=== PATIENT | male | born 1955 | race Caucasian/White ===

== ENCOUNTER 2022-02-14 14:11 | Emergency (ER) | payer OTHER ==
--- NOTE | 2022-02-14 15:52 | RAD REPORT ---
EXAM DESCRIPTION: RAD - Foot Right 3 View - 02/14/2022 3:40 pm CLINICAL HISTORY: PAIN, no known precipitating injury COMPARISON: No comparisons FINDINGS: Transverse fracture is present through the proximal shaft of the fifth metatarsal. No dist raction or angulation deformity. No other fracture or acute bone finding identified. Patient has buddy re degenerative change at the first MTP joint. The joint space is effaced with sclerotic change to th e articular margins. First metatarsal head bony hypertrophy is present. No air or foreign body in the soft tissues. IMPRESSION: Right fifth metatarsal fracture without distraction or angulation. 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
--- NOTE | 2022-02-14 15:56 | EDPHYS ---
[facility] Name: Cecilio Martinez Age: 66 yrs Sex: Male : 1955 Arrival Date: 02/14/2022 Time: 14:14 Bed IW8 Private MD: Bartolo Dumont T ED Physician Jessee Melgoza HPI: 02/14 15:16 This 66 yrs old Male presents to ER via Unassigned with complaints of Foot Injury. snw 15:16 The patient presents with pain, that is acute. The complaints affect the dorsum of snw right foot. Context: The problem was sustained at home, resulted from an unknown cause, the patient can partially bear weight, the patient is able to ambulate. Onset: The symptoms/episode began/occurred acutely. Associated signs and symptoms: The patient has no apparent associated signs or symptoms. Severity of symptoms: At their worst the symptoms were moderate. The patient has not experienced similar symptoms in the past. The patient has not recently seen a physician. pt noted tenderness to lateral right foot and then today during golf swing pt felt pop and fell to knees, tenderness to lateral foot. Historical: - Allergies: 15:53 No Known Allergies; ss - Immunization history:: Client reports receiving the 2nd dose of the Covid vaccine. - Social history:: Smoking status: Patient denies any tobacco usage or history of. ROS: 15:15 Constitutional: Negative for fever, chills, and weight loss, Eyes: Negative for injury, snw pain, redness, and discharge, ENT: Negative for injury, pain, and discharge, Neck: Negative for injury, pain, and swelling, Cardiovascular: Negative for chest pain, palpitations, and edema, Respiratory: Negative for shortness of breath, cough, wheezing, and pleuritic chest pain, Abdomen/GI: Negative for abdominal pain, nausea, vomiting, diarrhea, and constipation, Back: Negative for injury and pain, : Negative for injury, bleeding, discharge, and swelling, Skin: Negative for injury, rash, and discoloration, Neuro: Negative for headache, weakness, numbness, tingling, and seizure, Psych: Negative for depression, anxiety, suicide ideation, homicidal ideation, and hallucinations. 15:15 MS/extremity: Positive for injury or acute deformity, pain, swelling, of the right lateral foot. Exam: 15:13 Constitutional: This is a well developed, well nourished patient who is awake, alert, snw and in no acute distress. Head/Face: Normocephalic, atraumatic. Eyes: Pupils equal round and reactive to light, extra-ocular motions intact. Lids and lashes normal. Conjunctiva and sclera are non-icteric and not injected. Cornea within normal limits. Periorbital areas with no swelling, redness, or edema. ENT: Nares patent. No nasal discharge, no septal abnormalities noted. Tympanic membranes are normal and external auditory canals are clear. Oropharynx with no redness, swelling, or masses, exudates, or evidence of obstruction, uvula midline. Mucous membranes moist. Neck: Trachea midline, no thyromegaly or masses palpated, and no cervical lymphadenopathy. Supple, full range of motion without nuchal rigidity, or vertebral point tenderness. No Meningismus. Chest/axilla: Normal chest wall appearance and motion. Nontender with no deformity. No lesions are appreciated. Cardiovascular: Regular rate and rhythm with a normal S1 and S2. No gallops, murmurs, or rubs. Normal PMI, no JVD. No pulse deficits. Respiratory: Lungs have equal breath sounds bilaterally, clear to auscultation and percussion. No rales, rhonchi or wheezes noted. No increased work of breathing, no retractions or nasal flaring. Abdomen/GI: Soft, non-tender, with normal bowel sounds. No distension or tympany. No guarding or rebound. No evidence of tenderness throughout. Back: No spinal tenderness. No costovertebral tenderness. Full range of motion. Skin: Warm, dry with normal turgor. Normal color with no rashes, no lesions, and no evidence of cellulitis. Neuro: Awake and alert, GCS 15, oriented to person, place, time, and situation. Cranial nerves II-XII grossly intact. Motor strength 5/5 in all extremities. Sensory grossly intact. Cerebellar exam normal. Normal gait. Psych: Awake, alert, with orientation to person, place and time. Behavior, mood, and affect are within normal limits. 15:13 Musculoskeletal/extremity: Extremities: grossly normal except: noted in the dorsum of right foot: decreased ROM, tenderness, right lateral dorsal foot, ROM: no acute changes, Circulation is intact in all extremities. the dorsum of right foot Severe pain noted. Vital Signs: 15:51 BP 140 / 94; Pulse 84; Resp 16; Temp 98.8(TE); Pulse Ox 100% on R/A; Weight 74.84 kg; ss Height 5 ft. 8 in. (172.72 cm); Pain 5/10; 15:51 Body Mass Index 25.09 (74.84 kg, 172.72 cm) ss Procedures: 15:14 Splinting: Splint applied to right foot using walking boot, placed. applied by myself. snw Examined by me, post splint application: neurovascular intact, 2+ distal pulses palpable, brisk capillary refill noted, Patient tolerated well. MDM: 14:55 Patient medically screened. snw 15:57 Data reviewed: vital signs, nurses notes. Data interpreted: Pulse oximetry: is 100 %. snw Counseling: I had a detailed discussion with the patient and/or guardian regarding: the historical points, exam findings, and any diagnostic results supporting the discharge/admit diagnosis, radiology results, the need for outpatient follow up, for definitive care, to return to the emergency department if symptoms worsen or persist or if there are any questions or concerns that arise at home. Response to treatment: the patient's symptoms have markedly improved after treatment. 02/14 14:59 Order name: Foot Right 3 View XRAY; Complete Time: 15:54 snw 02/14 14:59 Order name: Walking boot; Complete Time: 15:54 snw Administered Medications: 15:56 Drug: traMADol 50 mg Route: PO; ss 16:15 Follow up: Response: Medication administered at discharge. Disposition: 18:04 Co-signature as Attending Physician, Jessee Melgoza MD I agree with the assessment and rt plan of care. Disposition Summary: 02/14/22 15:55 Discharge Ordered Location: Home snw Condition: Stable snw Diagnosis - Fracture of fifth metatarsal bone snw - Sprain of foot snw Followup: snw - With: Emergency Department - When: As needed - Reason: Worsening of condition Followup: snw - With: Bartolo Dumont MD - When: 1 week - Reason: Recheck today's complaints, Continuance of care, Re-evaluation by your physician Discharge Instructions: - Discharge Summary Sheet snw - Foot Sprain snw - Metatarsal Fracture snw - RICE Therapy for Routine Care of Injuries snw - Walking Boot, Adult snw - Foot Pain snw Forms: - Medication Reconciliation Form snw - Thank You Letter snw - Antibiotic Education snw - Prescription Opioid Use snw Prescriptions: - Mobic 7.5 mg Oral Tablet - take 1 tablet by ORAL route once daily take with food; 20 tablet; Refills: 0, snw Product Selection Permitted Signatures: Dispatcher [employer] EDMS Lanie Moctezuma, GEOLOGICAL SCOUT-C GEOLOGICAL SCOUT-Csnw Madeline Cannon RN RN ss Jessee Melgoza MD MD rt
--- NOTE | 2022-02-14 15:56 | ER ---
Nurse's Notes [facility] Name: Cecilio Martinez Age: 66 yrs Sex: Male : 1955 Arrival Date: 02/14/2022 Time: 14:14 Bed IW8 Private MD: Bartolo Dumont T Diagnosis: Fracture of fifth metatarsal bone;Sprain of foot Presentation: 02/14 15:51 Chief complaint: Patient states: R foot pain after stepping off curb while playing golf ss a week ago. Coronavirus screen: Client denies travel out of the [place] in the last 14 days. Ebola Screen: Patient denies exposure to infectious person. Patient denies travel to an Ebola-affected area in the 21 days before illness onset. Initial Sepsis Screen: Does the patient meet any 2 criteria? No. Patient's initial sepsis screen is negative. Does the patient have a suspected source of infection? No. Patient's initial sepsis screen is negative. Risk Assessment: Do you want to hurt yourself or someone else? Patient reports no desire to harm self or others. Onset of symptoms was February 07, 2022. 15:51 Method Of Arrival: Ambulatory ss 15:51 Acuity: ADRIA 4 ss Historical: - Allergies: 15:53 No Known Allergies; ss - Immunization history:: Client reports receiving the 2nd dose of the Covid vaccine. - Social history:: Smoking status: Patient denies any tobacco usage or history of. Vital Signs: 15:51 BP 140 / 94; Pulse 84; Resp 16; Temp 98.8(TE); Pulse Ox 100% on R/A; Weight 74.84 kg; ss Height 5 ft. 8 in. (172.72 cm); Pain 5/10; 15:51 Body Mass Index 25.09 (74.84 kg, 172.72 cm) ss ED Course: 14:14 Patient arrived in ED. as 14:14 Bartolo Dumont MD is Private Physician. as 14:29 Lanie Moctezuma FNP-C is [facility]. snw 14:29 Jessee Melgoza MD is Attending Physician. snw 15:42 Foot Right 3 View XRAY In Process Unspecified. EDMS 15:53 Triage completed. ss 15:53 Arm band placed on right wrist. ss 15:54 Bartolo Dumont MD is Referral Physician. snw 16:15 No provider procedures requiring assistance completed. Patient did not have IV access ss during this emergency room visit. walking boot applied to R foot by DAVID Dela Cruz. Administered Medications: 15:56 Drug: traMADol 50 mg Route: PO; ss 16:15 Follow up: Response: Medication administered at discharge. ss Outcome: 15:55 Discharge ordered by . snw 16:15 Discharged to home ambulatory. ss 16:15 Condition: good 16:15 Discharge instructions given to patient, Instructed on discharge instructions, follow up and referral plans. medication usage, Demonstrated understanding of instructions, follow-up care, medications, Prescriptions given X 1. 16:17 Patient left the ED. ss Signatures: Dispatcher [employer] EDMS Lanie Moctezuma, SANJIV-C BRUSH HOLDER INSPECTOR-Stacia Aquino Shelby, RN RN ss
[2022-02-14] MEDS ORDERED: TRAMADOL HCL 50 MG TAB ONE (15:59)
[2022-02-14 16:20] VITALS: BP 140/94; TEMP 98.8; O2SAT 100
== END 2022-02-14 16:17 | disposition home or self-care (01) ==
LOC: ER 14:11
DX: S92.351A Displaced fracture of fifth metatarsal bone, right foot, initial encounter for closed fracture (principal); S93.601A Unspecified sprain of right foot, initial encounter